=== PATIENT | female | born 1955 | race Two or more races ===

== ENCOUNTER 2019-08-28 17:04 | Inpatient (IN) | payer BC, MEDICARE ==
[~2019-08-28] VITALS: Ht 182.9 cm; Wt 95.7 kg
[2019-08-28 18:22] LABS: BASOPHILS # (AUTO) 0.09 x10^3/uL (0-0.1); BASOPHILS % (AUTO) 1 % (0-1); EOSINOPHILS # (AUTO) 0.59 x10^3/uL (0-0.4); EOSINOPHILS % (AUTO) 5 % (1-7); LYMPHOCYTES # (AUTO) 4.02 x10^3/uL (1-3.4); LYMPHOCYTES % (AUTO) 35 % (22-44); MD NO; MEAN CORPUSCULAR HGB CONC 31.7 g/dL (32.4-35.8); MEAN CORPUSCULAR VOLUME 91.6 fL (80-100); MEAN PLATELET VOLUME 9.1 fL (7.4-10.4); MONOCYTES # (AUTO) 0.49 x10^3/uL (0.2-0.8); MONOCYTES % (AUTO) 4 % (2-9); NEUTROPHILS # (AUTO) 6.39 x10^3/uL (1.8-6.8); NEUTROPHILS % (AUTO) 55 % (42-75); PLATELET COUNT 317 x10^3/uL (130-400)
[2019-08-28] MEDS ORDERED: SODIUM CHLORIDE FLUSH 10ML SYR IVF ONE (18:30)
[2019-08-28 18:32] LABS: ALANINE AMINOTRANSFERASE 32 U/L (12-78); ANION GAP 6 mmol/L (5-15); CALCIUM 8.6 mg/dL (8.5-10.1); CHLORIDE 114 mmol/L (98-107); CREATININE 0.82 mg/dL (0.55-1.02); T4 (THYROXINE) 13.3 mcg/dL (4.8-13.9)
[2019-08-28 18:36] LABS: ALKALINE PHOSPHATASE 58 U/L (45-117); BILIRUBIN,TOTAL 0.4 mg/dL (0.2-1.0); TOTAL PROTEIN 7.6 g/dL (6.4-8.2); TROPONIN I 0.094 ng/mL (0.000-0.045)
--- NOTE | 2019-08-28 18:40 | NUR ---
PT PLACED ON ALL MONITORING DEVICES IN ROOM. VS UPDATED IN COMPUTER. PT PROVIDED CANE ON REQUEST-STATES PREVIOUS WALKER AND CANE STOLEN. CALL LIGHT WITHIN REACH, WARM BLANKET PROVIDED.
--- NOTE | 2019-08-28 19:15 | NUR ---
task rn: PIV placed. O2 placed at 2 L NC to keep O2 sats above 90%. ice chips provided. mouth swabs provided per pt request.
[2019-08-28] MEDS ORDERED: FUROSEMIDE 40 MG/4 ML ONE (19:16)
[2019-08-28] MEDS ORDERED: NITROGLYCERIN OINT 2%, 1GM TP ONE ×2 (19:16→19:30)
[2019-08-28] MEDS ORDERED: ASPIRIN 81 MG TABLET CHEW ONE (19:16)
[2019-08-28] MEDS ORDERED: FUROSEMIDE 40 MG/4 ML IVPush ONE (19:30)
[2019-08-28] MEDS ORDERED: ASPIRIN 81 MG TABLET CHEW PO ONE (19:30)
[2019-08-28] MEDS ORDERED: LABETALOL 5 MG/ML SYR. (IV ONLY) IVPush ONE (19:30)
[2019-08-28] MEDS ORDERED: ANTIHYPERTENSIVE PO (19:39)
[2019-08-28] MEDS ORDERED: TRAM-47 PO (19:39)
[2019-08-28] MEDS ORDERED: ASPI325T17 PO (19:39)
[2019-08-28] MEDS ORDERED: LABETALOL 5MG/ML, 20ML ONE (19:51)
--- NOTE | 2019-08-28 19:55 | NUR ---
LABETOLOL GIVEN FOR BP 154/117. 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 REPORT TO YAQUELIN DEGROOT READY FOR TRANSPORT.
[2019-08-28] MEDS ORDERED: hydrALAzine 20 MG/ML, 1ML IVPush PRN (20:00)
[2019-08-28] MEDS ORDERED: POLYETHYLENE GLYCOL 17 GM PACKET PO PRN (20:00)
[2019-08-28] MEDS ORDERED: BISACODYL 10 MG SUPP PR PRN (20:00)
[2019-08-28] MEDS ORDERED: NITROGLYCERIN 0.4 MG BOTTLE (25 TABS) SL PRN (20:00)
[2019-08-28] MEDS ORDERED: morphine SULFATE 10 MG/ML, 1ML IVPush PRN (20:00)
[2019-08-28] MEDS ORDERED: PROMETHAZINE 25 MG/ML, 1ML IM PRN (20:00)
[2019-08-28] MEDS ORDERED: ONDANSETRON ODT 4 MG PO PRN (20:00)
[2019-08-28] MEDS ORDERED: LABETALOL 5 MG/ML SYR. (IV ONLY) IVPush PRN (20:00)
[2019-08-28] MEDS ORDERED: ACETAMINOPHEN 325 MG TABLET PO PRN (20:00)
[2019-08-28] MEDS ORDERED: ONDANSETRON 2MG/ML, 2ML IVPush PRN (20:00)
[2019-08-28] MEDS ORDERED: DOCUSATE 100 MG CAPSULE PO PRN (20:00)
[2019-08-28 20:45] VITALS: BP 128/90
[2019-08-28 21:01] LABS: HEMOGLOBIN A1C 5.7 % (4.2-6.3)
[2019-08-28] MEDS: HEPARIN 5,000 UNITS/ML, 1ML SQ SCH (21:15)
[2019-08-28 23:36] LABS: TROPONIN I 0.073 ng/mL (0.000-0.045)
[2019-08-28 23:49] VITALS: BP 150/101
[2019-08-29 01:31] VITALS: BP 150/87
[2019-08-29 02:27] LABS: TROPONIN I 0.067 ng/mL (0.000-0.045)
[2019-08-29 05:54] LABS: BASOPHILS # (AUTO) 0.03 x10^3/uL (0-0.1); BASOPHILS % (AUTO) 0 % (0-1); EOSINOPHILS % (AUTO) 5 % (1-7); LYMPHOCYTES # (AUTO) 3.16 x10^3/uL (1-3.4); LYMPHOCYTES % (AUTO) 30 % (22-44); MD NO; MEAN CORPUSCULAR HEMOGLOBIN 28.9 pg (27.0-34.8); MEAN CORPUSCULAR HGB CONC 31.6 g/dL (32.4-35.8); MEAN CORPUSCULAR VOLUME 91.6 fL (80-100); MEAN PLATELET VOLUME 9.1 fL (7.4-10.4); MONOCYTES # (AUTO) 0.64 x10^3/uL (0.2-0.8); MONOCYTES % (AUTO) 6 % (2-9); NEUTROPHILS # (AUTO) 6.25 x10^3/uL (1.8-6.8); NEUTROPHILS % (AUTO) 59 % (42-75); PLATELET COUNT 298 x10^3/uL (130-400); RED BLOOD COUNT 4.04 x10^6/uL (3.82-5.3); RED CELL DISTRIBUTION WIDTH 14.9 % (9.6-15.2)
[2019-08-29 06:06] LABS: ALANINE AMINOTRANSFERASE 30 U/L (12-78); ALBUMIN 2.9 g/dL (3.4-5.0); ANION GAP 7 mmol/L (5-15); CALCIUM 8.5 mg/dL (8.5-10.1); CHLORIDE 112 mmol/L (98-107)
[2019-08-29 06:11] LABS: ALKALINE PHOSPHATASE 56 U/L (45-117); BILIRUBIN,TOTAL 0.5 mg/dL (0.2-1.0); CHOL/HDL RATIO 3.9; CHOLESTEROL, TOTAL 94 mg/dL (140-239); CREATININE 0.62 mg/dL (0.55-1.02); HDL CHOL % 26 % (28-40); HDL CHOLESTEROL (DIRECT) 24 mg/dL (40-60); LDL CHOLESTEROL,CALCULATED 53 mg/dL (54-169); LDL/HDL RATIO 2.2 (0.5-3.0); TRIGLYCERIDES 85 mg/dL (50-200); TROPONIN I 0.062 ng/mL (0.000-0.045); VLDL CHOLESTEROL 17 mg/dL (0-25)
[2019-08-29] MEDS: ASPIRIN 325 MG TABLET EC PO SCH (06:49)
[2019-08-29] MEDS: HEPARIN 5,000 UNITS/ML, 1ML SQ SCH ×3 (06:49→22:50)
[2019-08-29] MEDS ORDERED: FUROSEMIDE 20 MG/2 ML IV SCH (07:30)
[2019-08-29 07:40] VITALS: BP 132/90
[2019-08-29] MEDS: OXYcodone IR 5MG TABLET PO PRN ×3 (12:29→22:50)
[2019-08-29] MEDS: POTASSIUM CHLORIDE 20 MEQ TAB.ER.PRT PO SCH ×2 (15:45→17:14)
[2019-08-29 15:47] VITALS: BP 161/94
[2019-08-29] MEDS: FUROSEMIDE 40 MG/4 ML IV SCH (17:14)
[2019-08-29 19:05] VITALS: BP 135/89
[2019-08-29] MEDS: LISINOPRIL 5 MG TABLET PO SCH (20:26)
[2019-08-30 01:06] VITALS: BP 130/81
[2019-08-30] MEDS: ASPIRIN 325 MG TABLET EC PO SCH (05:33)
[2019-08-30] MEDS: HEPARIN 5,000 UNITS/ML, 1ML SQ SCH ×2 (05:33→16:37)
[2019-08-30 05:42] LABS: ANION GAP 5 mmol/L (5-15); CALCIUM 8.9 mg/dL (8.5-10.1); CHLORIDE 109 mmol/L (98-107)
[2019-08-30 05:43] LABS: CREATININE 0.78 mg/dL (0.55-1.02)
[2019-08-30 05:58] LABS: BASOPHILS # (AUTO) 0.03 x10^3/uL (0-0.1); BASOPHILS % (AUTO) 0 % (0-1); EOSINOPHILS # (AUTO) 0.61 x10^3/uL (0-0.4); EOSINOPHILS % (AUTO) 5 % (1-7); LYMPHOCYTES # (AUTO) 4.65 x10^3/uL (1-3.4); LYMPHOCYTES % (AUTO) 37 % (22-44); MD NO; MEAN CORPUSCULAR HEMOGLOBIN 28.5 pg (27.0-34.8); MEAN CORPUSCULAR HGB CONC 31.7 g/dL (32.4-35.8); MEAN CORPUSCULAR VOLUME 89.9 fL (80-100); MEAN PLATELET VOLUME 8.8 fL (7.4-10.4); MONOCYTES # (AUTO) 0.78 x10^3/uL (0.2-0.8); MONOCYTES % (AUTO) 6 % (2-9); NEUTROPHILS # (AUTO) 6.62 x10^3/uL (1.8-6.8); NEUTROPHILS % (AUTO) 52 % (42-75); PLATELET COUNT 328 x10^3/uL (130-400); RED BLOOD COUNT 4.15 x10^6/uL (3.82-5.3); RED CELL DISTRIBUTION WIDTH 14.8 % (9.6-15.2)
[2019-08-30] MEDS ORDERED: REGADENOSON 0.4 MG/5 ML SYRINGE ONE (09:10)
[2019-08-30] MEDS: POTASSIUM CHLORIDE 20 MEQ TAB.ER.PRT PO SCH (09:18)
[2019-08-30] MEDS: LISINOPRIL 5 MG TABLET PO SCH ×2 (09:18→20:57)
[2019-08-30] MEDS: SPIRONOLACTONE 25 MG TABLET PO SCH ×2 (09:18→10:04)
[2019-08-30 09:37] VITALS: BP 129/81
[2019-08-30] MEDS: FUROSEMIDE 40 MG/4 ML IV SCH ×2 (10:04→16:36)
[2019-08-30 17:02] VITALS: BP 124/97
[2019-08-30 18:34] LABS: MICROSCOPIC NOT IND
[2019-08-30 18:35] LABS: CULTURE INDICATED? NO
[2019-08-30 19:40] VITALS: BP 138/93
[2019-08-30] MEDS: OXYcodone IR 5MG TABLET PO PRN (20:57)
[2019-08-31] MEDS: HEPARIN 5,000 UNITS/ML, 1ML SQ SCH ×3 (01:37→17:51)
[2019-08-31 01:44] VITALS: BP 136/89
[2019-08-31] MEDS: OXYcodone IR 5MG TABLET PO PRN ×3 (03:46→17:51)
[2019-08-31 05:20] LABS: BASOPHILS # (AUTO) 0.06 x10^3/uL (0-0.1); BASOPHILS % (AUTO) 1 % (0-1); EOSINOPHILS # (AUTO) 0.73 x10^3/uL (0-0.4); EOSINOPHILS % (AUTO) 6 % (1-7); LYMPHOCYTES # (AUTO) 4.68 x10^3/uL (1-3.4); LYMPHOCYTES % (AUTO) 41 % (22-44); MD NO; MEAN CORPUSCULAR HEMOGLOBIN 28.3 pg (27.0-34.8); MEAN CORPUSCULAR HGB CONC 31.4 g/dL (32.4-35.8); MEAN PLATELET VOLUME 8.5 fL (7.4-10.4); MONOCYTES # (AUTO) 0.83 x10^3/uL (0.2-0.8); MONOCYTES % (AUTO) 7 % (2-9); NEUTROPHILS # (AUTO) 5.14 x10^3/uL (1.8-6.8); NEUTROPHILS % (AUTO) 45 % (42-75); PLATELET COUNT 366 x10^3/uL (130-400); RED BLOOD COUNT 4.37 x10^6/uL (3.82-5.3); RED CELL DISTRIBUTION WIDTH 14.7 % (9.6-15.2)
[2019-08-31 05:26] LABS: ANION GAP 6 mmol/L (5-15); CALCIUM 9.3 mg/dL (8.5-10.1); CHLORIDE 108 mmol/L (98-107); CREATININE 0.79 mg/dL (0.55-1.02)
[2019-08-31] MEDS ORDERED: REGADENOSON 0.4 MG/5 ML SYRINGE ONE (08:22)
[2019-08-31 10:44] VITALS: BP 135/92
[2019-08-31] MEDS: FUROSEMIDE 40 MG/4 ML IV SCH ×2 (10:46→17:44)
[2019-08-31] MEDS: SPIRONOLACTONE 25 MG TABLET PO SCH (10:47)
[2019-08-31] MEDS: ASPIRIN 325 MG TABLET EC PO SCH (10:47)
[2019-08-31] MEDS: LISINOPRIL 5 MG TABLET PO SCH ×2 (10:47→20:05)
[2019-08-31] MEDS: POTASSIUM CHLORIDE 20 MEQ TAB.ER.PRT PO SCH (10:47)
[2019-08-31] MEDS ORDERED: POTASSIUM CHLORIDE 20 MEQ TAB.ER.PRT PO ONE (12:30)
[2019-08-31] MEDS ORDERED: HEPARIN 5,000 UNITS/ML, 1ML IV ONE (13:00)
[2019-08-31] MEDS ORDERED: HEPARIN 5,000 UNITS/ML, 1ML IV PRN (13:00)
[2019-08-31] MEDS ORDERED: HEPARIN 25,000 UNITS/500ML PMX 500 ML IV PRN (13:00)
[2019-08-31 13:20] VITALS: BP 142/97
[2019-08-31 17:42] VITALS: BP 128/94
[2019-08-31] MEDS: CARVEDILOL 3.125 MG TABLET PO SCH (17:46)
[2019-08-31 20:03] VITALS: BP 107/75
[2019-08-31] MEDS: ATORVASTATIN 40 MG TABLET PO SCH ×2 (20:05→20:07)
[2019-09-01] VITALS (7 sets, daily range): BP systolic 90–130; BP diastolic 67–84
[2019-09-01] MEDS: OXYcodone IR 5MG TABLET PO PRN ×4 (00:14→20:49)
[2019-09-01] MEDS: HEPARIN 5,000 UNITS/ML, 1ML SQ SCH ×3 (01:47→17:38)
[2019-09-01] MEDS: ASPIRIN 325 MG TABLET EC PO SCH (05:52)
[2019-09-01] MEDS: CARVEDILOL 3.125 MG TABLET PO SCH ×2 (05:52→17:38)
[2019-09-01 06:14] LABS: BASOPHILS # (AUTO) 0.04 x10^3/uL (0-0.1); BASOPHILS % (AUTO) 1 % (0-1); EOSINOPHILS # (AUTO) 0.72 x10^3/uL (0-0.4); EOSINOPHILS % (AUTO) 8 % (1-7); LYMPHOCYTES # (AUTO) 3.35 x10^3/uL (1-3.4); LYMPHOCYTES % (AUTO) 37 % (22-44); MD NO; MEAN CORPUSCULAR HEMOGLOBIN 28.8 pg (27.0-34.8); MEAN CORPUSCULAR HGB CONC 31.3 g/dL (32.4-35.8); MEAN PLATELET VOLUME 8.4 fL (7.4-10.4); MONOCYTES # (AUTO) 0.67 x10^3/uL (0.2-0.8); MONOCYTES % (AUTO) 8 % (2-9); NEUTROPHILS # (AUTO) 4.19 x10^3/uL (1.8-6.8); NEUTROPHILS % (AUTO) 47 % (42-75); PLATELET COUNT 390 x10^3/uL (130-400); RED BLOOD COUNT 4.49 x10^6/uL (3.82-5.3); RED CELL DISTRIBUTION WIDTH 14.7 % (9.6-15.2)
[2019-09-01 06:23] LABS: CHLORIDE 108 mmol/L (98-107)
[2019-09-01 06:29] LABS: ANION GAP 6 mmol/L (5-15); CALCIUM 9.4 mg/dL (8.5-10.1)
[2019-09-01] MEDS: FUROSEMIDE 40 MG/4 ML IV SCH (08:07)
[2019-09-01] MEDS: POTASSIUM CHLORIDE 20 MEQ TAB.ER.PRT PO SCH (08:09)
[2019-09-01] MEDS: SPIRONOLACTONE 25 MG TABLET PO SCH (08:09)
[2019-09-01] MEDS: LISINOPRIL 5 MG TABLET PO SCH ×2 (08:09→20:49)
[2019-09-01] MEDS: BUMETANIDE 0.25 MG/ML, 4ML IV SCH ×2 (09:00→20:49)
[2019-09-01] MEDS: ATORVASTATIN 40 MG TABLET PO SCH (20:50)
[2019-09-02] MEDS: HEPARIN 5,000 UNITS/ML, 1ML SQ SCH ×3 (00:56→18:26)
[2019-09-02] MEDS: OXYcodone IR 5MG TABLET PO PRN ×4 (00:56→21:33)
[2019-09-02 00:59] VITALS: BP 110/78
[2019-09-02 05:26] LABS: ANION GAP 7 mmol/L (5-15); CALCIUM 9.2 mg/dL (8.5-10.1); CHLORIDE 106 mmol/L (98-107); CREATININE 0.87 mg/dL (0.55-1.02)
[2019-09-02 06:24] VITALS: BP 98/58
[2019-09-02] MEDS: ASPIRIN 325 MG TABLET EC PO SCH (06:26)
[2019-09-02] MEDS: CARVEDILOL 3.125 MG TABLET PO SCH ×2 (06:26→18:26)
[2019-09-02 09:47] VITALS: BP 97/74
[2019-09-02] MEDS: BUMETANIDE 0.25 MG/ML, 4ML IV SCH (09:51)
[2019-09-02] MEDS: POTASSIUM CHLORIDE 20 MEQ TAB.ER.PRT PO SCH (09:51)
[2019-09-02] MEDS: SPIRONOLACTONE 25 MG TABLET PO SCH (09:52)
[2019-09-02] MEDS: LISINOPRIL 5 MG TABLET PO SCH (09:55)
[2019-09-02 13:48] VITALS: BP 109/72
[2019-09-02 17:23] VITALS: BP 106/73
[2019-09-02] MEDS: FUROSEMIDE 40 MG/4 ML IV SCH (17:24)
[2019-09-02 19:13] VITALS: BP 100/69
[2019-09-02] MEDS: ATORVASTATIN 40 MG TABLET PO SCH (21:00)
[2019-09-03 01:06] VITALS: BP 104/69
[2019-09-03] MEDS: HEPARIN 5,000 UNITS/ML, 1ML SQ SCH ×3 (01:12→18:28)
[2019-09-03] MEDS: OXYcodone IR 5MG TABLET PO PRN ×4 (02:17→21:01)
[2019-09-03 05:15] VITALS: BP 105/72
[2019-09-03] MEDS: CARVEDILOL 3.125 MG TABLET PO SCH ×2 (05:16→18:27)
[2019-09-03] MEDS: ASPIRIN 325 MG TABLET EC PO SCH (05:16)
[2019-09-03 05:39] LABS: ANION GAP 7 mmol/L (5-15); CALCIUM 9.4 mg/dL (8.5-10.1); CHLORIDE 103 mmol/L (98-107)
[2019-09-03 05:41] LABS: CREATININE 0.86 mg/dL (0.55-1.02)
[2019-09-03] MEDS: FUROSEMIDE 40 MG/4 ML IV SCH (08:20)
[2019-09-03 09:18] VITALS: BP 109/76
[2019-09-03] MEDS: LISINOPRIL 5 MG TABLET PO SCH (09:19)
[2019-09-03] MEDS: SPIRONOLACTONE 25 MG TABLET PO SCH (09:19)
[2019-09-03] MEDS: POTASSIUM CHLORIDE 20 MEQ TAB.ER.PRT PO SCH (09:20)
[2019-09-03 15:24] VITALS: BP 96/66
[2019-09-03 18:25] VITALS: BP 103/71
[2019-09-03 19:12] VITALS: BP 102/72
[2019-09-03] MEDS: ATORVASTATIN 40 MG TABLET PO SCH (21:00)
[2019-09-04 00:31] VITALS: BP 117/86
[2019-09-04] MEDS: OXYcodone IR 5MG TABLET PO PRN ×2 (01:26→02:15)
[2019-09-04] MEDS: HEPARIN 5,000 UNITS/ML, 1ML SQ SCH ×2 (01:26→09:37)
[2019-09-04] MEDS ORDERED: DIPHENHYDRAMINE 25 MG CAPSULE PO ONE (04:30)
[2019-09-04] MEDS: CARVEDILOL 3.125 MG TABLET PO SCH (04:37)
[2019-09-04] MEDS: ASPIRIN 325 MG TABLET EC PO SCH (04:38)
[2019-09-04 08:52] VITALS: BP 112/78
[2019-09-04] MEDS ORDERED: FURO80TA3 PO (08:57)
[2019-09-04] MEDS ORDERED: CARV3.1212 PO (08:57)
[2019-09-04] MEDS ORDERED: SPIR25TA PO (08:57)
[2019-09-04] MEDS ORDERED: LISI5TAB7 PO (08:57)
[2019-09-04] MEDS ORDERED: POTA20TA6 PO (08:57)
[2019-09-04] MEDS ORDERED: ATOR40TA78 PO (08:57)
[2019-09-04] MEDS ORDERED: FUROSEMIDE 80 MG TABLET PO SCH (09:00)
[2019-09-04] MEDS: LISINOPRIL 5 MG TABLET PO SCH (09:34)
[2019-09-04] MEDS: SPIRONOLACTONE 25 MG TABLET PO SCH (09:34)
[2019-09-04] MEDS: POTASSIUM CHLORIDE 20 MEQ TAB.ER.PRT PO SCH (09:35)
== END 2019-09-04 10:10 | disposition home or self-care (01) | DRG 280 ==
LOC: ED 19:22 → EDIP 19:59 → 5SO 20:30
PROVIDERS: ADMIT Internal Medicine; ATTEND Family Medicine
DX: I21.A1 Myocardial infarction type 2 (principal); I50.43 Acute on chronic combined systolic (congestive) and diastolic (congestive) heart failure; I42.9 Cardiomyopathy, unspecified; I11.0 Hypertensive heart disease with heart failure; E87.6 Hypokalemia; F17.210 Nicotine dependence, cigarettes, uncomplicated; G89.29 Other chronic pain; I27.20 Pulmonary hypertension, unspecified; I34.0 Nonrheumatic mitral (valve) insufficiency; M48.00 Spinal stenosis, site unspecified; Z96.649 Presence of unspecified artificial hip joint; Z96.653 Presence of artificial knee joint, bilateral; I25.10 Atherosclerotic heart disease of native coronary artery without angina pectoris; Z91.14 Patient's other noncompliance with medication regimen; Z59.0 Homelessness
CPT/HCPCS: 0399T; 36415; 71045; 78452; 80048; 80053; 80061; 81003; 83036; 83735; 83880; 84100; 84145; 84436; 84439; 84443; 84484; 85025; 85520; 93005; 93017; 93306; 96374; 96375; G0378; J1644; J1940; J2785; A9502; J0360; Q0163

== ENCOUNTER 2019-10-20 15:27 | Emergency (ER) | payer BC ==
[~2019-10-20] VITALS: Ht 182.9 cm; Wt 94.7 kg
[~2019-10-20 15:27] MED LIST: ANTIHYPERTENSIVE PO; ASPI325T17 PO; ATOR40TA78 PO; CARV3.1212 PO; FURO80TA3 PO; LISI5TAB7 PO; POTA20TA6 PO; SPIR25TA PO; TRAM-47 PO
--- NOTE | 2019-10-20 15:47 | NUR ---
[email or web address]
--- NOTE | 2019-10-20 19:34 | NUR ---
ALEENA RN: ANJANA COLLECTED AND WALKED TO LAB FROM JOHNATHAN
[2019-10-20 19:38] LABS: ALANINE AMINOTRANSFERASE 24 U/L (12-78); ANION GAP 8 mmol/L (5-15); CALCIUM 9.7 mg/dL (8.5-10.1); CHLORIDE 110 mmol/L (98-107)
[2019-10-20 19:43] LABS: ALKALINE PHOSPHATASE 67 U/L (45-117); CREATININE 0.98 mg/dL (0.55-1.02); TOTAL PROTEIN 8.5 g/dL (6.4-8.2)
[2019-10-20 19:47] LABS: BASOPHILS # (AUTO) 0.03 x10^3/uL (0-0.1); BASOPHILS % (AUTO) 0 % (0-1); EOSINOPHILS # (AUTO) 0.15 x10^3/uL (0-0.4); EOSINOPHILS % (AUTO) 2 % (1-7); LYMPHOCYTES # (AUTO) 4.27 x10^3/uL (1-3.4); LYMPHOCYTES % (AUTO) 42 % (22-44); MD NO; MEAN CORPUSCULAR HEMOGLOBIN 27.5 pg (27.0-34.8); MEAN CORPUSCULAR HGB CONC 31.2 g/dL (32.4-35.8); MEAN PLATELET VOLUME 9.2 fL (7.4-10.4); MONOCYTES # (AUTO) 0.55 x10^3/uL (0.2-0.8); MONOCYTES % (AUTO) 6 % (2-9); NEUTROPHILS # (AUTO) 5.09 x10^3/uL (1.8-6.8); NEUTROPHILS % (AUTO) 50 % (42-75); PLATELET COUNT 275 x10^3/uL (130-400); RED BLOOD COUNT 4.59 x10^6/uL (3.82-5.3); RED CELL DISTRIBUTION WIDTH 16.7 % (9.6-15.2)
[2019-10-20 19:51] LABS: MICROSCOPIC AUTO
[2019-10-20 19:52] LABS: CULTURE INDICATED? YES
[2019-10-20] MEDS ORDERED: DICYCLOMINE 10 MG/ML, 2ML ONE (22:21)
[2019-10-20] MEDS ORDERED: DIPHENHYDRAMINE 50 MG/ML, 1ML ONE (22:21)
[2019-10-20] MEDS ORDERED: ONDANSETRON ODT 4 MG ONE (22:22)
[2019-10-20] MEDS ORDERED: DICYCLOMINE 10 MG/ML, 2ML IM ONE (22:30)
[2019-10-20] MEDS ORDERED: ONDANSETRON ODT 4 MG PO ONE (22:30)
[2019-10-20] MEDS ORDERED: TRAM50TA2 PO (22:34)
[2019-10-20] MEDS ORDERED: HYDR-826 PO (22:34)
--- NOTE | 2019-10-20 22:46 | NUR ---
Pt medicated per MAR.
[2019-10-20 22:52] VITALS: BP 157/98
== END 2019-10-20 23:04 | disposition home or self-care (01) ==
LOC: ED 22:45
DX: R11.2 Nausea with vomiting, unspecified (principal); R19.7 Diarrhea, unspecified; E86.0 Dehydration; R10.84 Generalized abdominal pain; I11.0 Hypertensive heart disease with heart failure; I25.2 Old myocardial infarction
CPT/HCPCS: 36415; 80053; 81001; 83690; 83880; 85025; 87086; 96372; 99283; J0500; Q0162

== ENCOUNTER 2019-12-05 01:33 | Inpatient (IN) | payer MEDICARE ==
[~2019-12-05] VITALS: Ht 180.3 cm; Wt 97.8 kg
[~2019-12-05 01:33] MED LIST changes: +HYDR-826 PO; +TRAM50TA2 PO
[2019-12-05] MEDS ORDERED: LOSA25TA25 PO (02:11)
[2019-12-05] MEDS ORDERED: FURO20TA3 PO (02:11)
[2019-12-05] MEDS ORDERED: SODIUM CHLORIDE FLUSH 10ML SYR IVF ONE (02:30)
[2019-12-05] MEDS ORDERED: ASPIRIN 81 MG TABLET CHEW PO ONE (02:30)
[2019-12-05] MEDS ORDERED: ONDANSETRON 2MG/ML, 2ML ONE (02:56)
[2019-12-05] MEDS ORDERED: ONDANSETRON 2MG/ML, 2ML IVPush ONE (03:00)
--- NOTE | 2019-12-05 03:05 | NUR ---
C/O NAUSEA AND FEELING ANXIOUS, MEDICATED PER MAR. EDUCATED AND ENCOURAGED PT ON LEAVING OXYGEN NC ON. MOTION PICTURE DIRECTOR AT BEDSIDE FOR BLOOD DRAW.
[2019-12-05] MEDS ORDERED: LORazepam 2 MG/ML, 1ML ONE (03:13)
[2019-12-05 03:18] LABS: BASOPHILS # (AUTO) 0.04 x10^3/uL (0-0.1); BASOPHILS % (AUTO) 1 % (0-1); EOSINOPHILS # (AUTO) 0.11 x10^3/uL (0-0.4); EOSINOPHILS % (AUTO) 1 % (1-7); LYMPHOCYTES % (AUTO) 24 % (22-44); MD NO; MEAN CORPUSCULAR HGB CONC 31.3 g/dL (32.4-35.8); MEAN CORPUSCULAR VOLUME 86.4 fL (80-100); MEAN PLATELET VOLUME 9.1 fL (7.4-10.4); MONOCYTES # (AUTO) 0.44 x10^3/uL (0.2-0.8); MONOCYTES % (AUTO) 5 % (2-9); NEUTROPHILS # (AUTO) 6.22 x10^3/uL (1.8-6.8); NEUTROPHILS % (AUTO) 69 % (42-75); PLATELET COUNT 284 x10^3/uL (130-400); RED BLOOD COUNT 4.54 x10^6/uL (3.82-5.3); RED CELL DISTRIBUTION WIDTH 19.6 % (9.6-15.2)
[2019-12-05 03:30] LABS: ALANINE AMINOTRANSFERASE 31 U/L (12-78); ALBUMIN 3.7 g/dL (3.4-5.0); ANION GAP 9 mmol/L (5-15); CALCIUM 9.2 mg/dL (8.5-10.1); CHLORIDE 107 mmol/L (98-107); CREATININE 0.82 mg/dL (0.55-1.02)
[2019-12-05] MEDS ORDERED: LORazepam 2 MG/ML, 1ML IVPush ONE (03:30)
[2019-12-05 03:35] LABS: ALKALINE PHOSPHATASE 62 U/L (45-117); BILIRUBIN,TOTAL 0.9 mg/dL (0.2-1.0); TOTAL PROTEIN 8.1 g/dL (6.4-8.2); TROPONIN I 0.112 ng/mL (0.000-0.045)
[2019-12-05] MEDS ORDERED: ALBUTEROL/IPRATROPIUM 2.5MG/0.5MG, 3 ML ONE (03:58)
[2019-12-05] MEDS ORDERED: ALBUTEROL/IPRATROPIUM 2.5MG/0.5MG, 3 ML NPPB ONE (04:00)
[2019-12-05] MEDS ORDERED: SODIUM CHLORIDE 0.9% 1,000ML IVBOLUS ONE (04:00)
[2019-12-05] MEDS ORDERED: AZITHROMYCIN 500 MG in SODIUM CHLORIDE 0.9% 250 ML IVPB ONE (04:00)
[2019-12-05] MEDS ORDERED: CEFTRIAXONE PMX 1GM/50ML 50 ML IVPB ONE (04:00)
[2019-12-05] MEDS ORDERED: CEFTRIAXONE PMX 1GM/50ML 50 ML ONE (04:19)
--- NOTE | 2019-12-05 04:43 | NUR ---
SITTING UP ON GURNEY IN TRIPOD POSITION FOR COMFORT, NO ACUTE DISTRESS NOTED. VSS.
--- NOTE | 2019-12-05 05:07 | NUR ---
REPORT GIVEN TO MELINA COX.
[2019-12-05] MEDS ORDERED: ACETAMINOPHEN 325 MG TABLET PO PRN (05:30)
[2019-12-05] MEDS ORDERED: ONDANSETRON 2MG/ML, 2ML IVPush PRN (05:30)
[2019-12-05] MEDS ORDERED: CEFTRIAXONE PMX 1GM/50ML 50 ML IV SCH (06:00)
[2019-12-05 06:02] VITALS: BP 134/97
[2019-12-05 06:34] LABS: TROPONIN I 0.123 ng/mL (0.000-0.045)
[2019-12-05 07:58] VITALS: BP 131/80
[2019-12-05] MEDS ORDERED: FUROSEMIDE 20 MG/2 ML IV SCH (09:00)
[2019-12-05] MEDS: DOXYCYCLINE 100MG CAP PO SCH ×2 (09:11→22:07)
[2019-12-05] MEDS: FUROSEMIDE 40 MG/4 ML IV SCH ×2 (09:11→22:07)
[2019-12-05] MEDS: OXYcodone IR 5MG TABLET PO PRN ×3 (09:46→22:08)
[2019-12-05] MEDS ORDERED: LIDOCAINE 1%, 10ML ONE (10:39)
[2019-12-05 12:02] LABS: TROPONIN I 0.115 ng/mL (0.000-0.045)
[2019-12-05 12:15] VITALS: BP 138/85
[2019-12-05 12:17] LABS: MICROSCOPIC NOT IND
[2019-12-05 12:21] LABS: CULTURE INDICATED? NO
[2019-12-05 18:29] LABS: TROPONIN I 0.128 ng/mL (0.000-0.045)
[2019-12-05 19:37] VITALS: BP 136/81
[2019-12-06 01:15] VITALS: BP 108/72
[2019-12-06] MEDS: OXYcodone IR 5MG TABLET PO PRN ×2 (04:33→12:04)
[2019-12-06 05:14] LABS: ANION GAP 5 mmol/L (5-15); CALCIUM 8.6 mg/dL (8.5-10.1); CHLORIDE 105 mmol/L (98-107)
[2019-12-06 05:17] LABS: BASOPHILS # (AUTO) 0.03 x10^3/uL (0-0.1); BASOPHILS % (AUTO) 1 % (0-1); CREATININE 0.94 mg/dL (0.55-1.02); EOSINOPHILS # (AUTO) 0.24 x10^3/uL (0-0.4); EOSINOPHILS % (AUTO) 3 % (1-7); LYMPHOCYTES # (AUTO) 3.17 x10^3/uL (1-3.4); LYMPHOCYTES % (AUTO) 41 % (22-44); MD NO; MEAN CORPUSCULAR HEMOGLOBIN 27.2 pg (27.0-34.8); MEAN CORPUSCULAR HGB CONC 31.3 g/dL (32.4-35.8); MEAN CORPUSCULAR VOLUME 86.9 fL (80-100); MEAN PLATELET VOLUME 9.1 fL (7.4-10.4); MONOCYTES # (AUTO) 0.52 x10^3/uL (0.2-0.8); MONOCYTES % (AUTO) 7 % (2-9); NEUTROPHILS % (AUTO) 48 % (42-75); PLATELET COUNT 234 x10^3/uL (130-400); RED BLOOD COUNT 4.11 x10^6/uL (3.82-5.3); RED CELL DISTRIBUTION WIDTH 19.3 % (9.6-15.2)
[2019-12-06 06:50] VITALS: BP 118/70
[2019-12-06] MEDS: FUROSEMIDE 40 MG/4 ML IV SCH (07:43)
[2019-12-06] MEDS: DOXYCYCLINE 100MG CAP PO SCH (07:43)
[2019-12-06] MEDS ORDERED: CLOTRIMAZOLE CRM 1%, 15GM TP SCH (09:30)
[2019-12-06 12:30] VITALS: BP 115/81
== END 2019-12-06 15:25 | disposition left against medical advice (07) | DRG 871 ==
LOC: ED 04:12 → EDIP 04:29 → 5SO 05:47
PROVIDERS: ADMIT Family Medicine; ATTEND Hospitalist
PROC: 0W993ZZ Drainage of Right Pleural Cavity, Percutaneous Approach (ICD-10-PCS; principal; 2019-12-05)
DX: A41.9 Sepsis, unspecified organism (principal); I50.43 Acute on chronic combined systolic (congestive) and diastolic (congestive) heart failure; J96.01 Acute respiratory failure with hypoxia; R65.21 Severe sepsis with septic shock; I21.4 Non-ST elevation (NSTEMI) myocardial infarction; J15.6 Pneumonia due to other Gram-negative bacteria; R94.31 Abnormal electrocardiogram [ECG] [EKG]; I25.10 Atherosclerotic heart disease of native coronary artery without angina pectoris; Z53.29 Procedure and treatment not carried out because of patient's decision for other reasons; M48.00 Spinal stenosis, site unspecified; I11.0 Hypertensive heart disease with heart failure; I25.2 Old myocardial infarction; Z59.0 Homelessness; Z87.891 Personal history of nicotine dependence; Z91.14 Patient's other noncompliance with medication regimen
CPT/HCPCS: 32555; 36415; 71275; 80048; 80053; 81003; 82042; 82945; 83605; 83615; 83880; 83986; 84145; 84484; 85025; 87040; 87070; 87205; 89051; 93005; 94640; 96365; 96375; 99291; G0378; J0456; J0696; J1940; J2405; J2060; J7030; J7050

== ENCOUNTER 2019-12-27 08:46 | Emergency (ER) | payer MEDICARE ==
[~2019-12-27] VITALS: Ht 180.3 cm; Wt 91.5 kg
[~2019-12-27 08:46] MED LIST changes: +FURO20TA3 PO; +LOSA25TA25 PO
--- NOTE | 2019-12-27 09:09 | NUR ---
first contact with pt. pt C/O: Nausea without vomiting for two days, diarrhea for two days, and ring worm and rash on bilateral feet. pt's aox4. resps even and unlabored. all monitors in place. call light within reach. pa at bedside to evaluate at this time.
--- NOTE | 2019-12-27 09:27 | NUR ---
EKG DONE AT BEDSIDE AT THIS TIME. URINE CUP GIVEN PT AWARE OF UA.
[2019-12-27] MEDS ORDERED: SODIUM CHLORIDE 0.9% 1,000ML IVBOLUS ONE (09:30)
[2019-12-27] MEDS ORDERED: ONDANSETRON 2MG/ML, 2ML IVPush ONE (09:30)
[2019-12-27] MEDS ORDERED: ONDANSETRON 2MG/ML, 2ML ONE (09:35)
--- NOTE | 2019-12-27 09:35 | NUR ---
pt amb to br and back to room with steady gait.
[2019-12-27 09:38] LABS: ALBUMIN 3.6 g/dL (3.4-5.0); ANION GAP 9 mmol/L (5-15); CALCIUM 9.3 mg/dL (8.5-10.1); CHLORIDE 112 mmol/L (98-107); CREATININE 0.85 mg/dL (0.55-1.02)
[2019-12-27 09:43] LABS: BASOPHILS # (AUTO) 0.06 x10^3/uL (0-0.1); BASOPHILS % (AUTO) 1 % (0-1); EOSINOPHILS # (AUTO) 0.21 x10^3/uL (0-0.4); EOSINOPHILS % (AUTO) 2 % (1-7); LYMPHOCYTES # (AUTO) 3.94 x10^3/uL (1-3.4); LYMPHOCYTES % (AUTO) 40 % (22-44); MD NO; MEAN CORPUSCULAR HEMOGLOBIN 27.1 pg (27.0-34.8); MEAN CORPUSCULAR HGB CONC 31.6 g/dL (32.4-35.8); MEAN CORPUSCULAR VOLUME 85.8 fL (80-100); MONOCYTES # (AUTO) 0.53 x10^3/uL (0.2-0.8); MONOCYTES % (AUTO) 5 % (2-9); NEUTROPHILS # (AUTO) 5.12 x10^3/uL (1.8-6.8); NEUTROPHILS % (AUTO) 52 % (42-75); PLATELET COUNT 245 x10^3/uL (130-400); RED BLOOD COUNT 4.46 x10^6/uL (3.82-5.3); RED CELL DISTRIBUTION WIDTH 19.1 % (9.6-15.2)
--- NOTE | 2019-12-27 09:47 | NUR ---
ua collected and sent.
--- NOTE | 2019-12-27 09:50 | NUR ---
ICE CHIPS GIVEN AT THIS TIME.
[2019-12-27 09:59] LABS: MICROSCOPIC INDICATED
[2019-12-27 10:03] LABS: CULTURE INDICATED? YES
--- NOTE | 2019-12-27 10:37 | NUR ---
hospital socks given per request. rail 1 down per request at this time. call light wihin reach. pt's aox4. resps even and unlabored.
[2019-12-27 11:10] VITALS: BP 135/110
--- NOTE | 2019-12-27 11:11 | NUR ---
Patient given discharge instructions and they have confirmed that they understand the instructions. Patient ambulatory with steady gait.
== END 2019-12-27 11:13 | disposition home or self-care (01) ==
LOC: ED 09:03
DX: B35.4 Tinea corporis (principal); R19.7 Diarrhea, unspecified; I25.2 Old myocardial infarction; I11.0 Hypertensive heart disease with heart failure; I50.9 Heart failure, unspecified; R00.0 Tachycardia, unspecified; Z87.891 Personal history of nicotine dependence
CPT/HCPCS: 36415; 80048; 81001; 82040; 85025; 87086; 93005; 96374; 99284; J2405

== ENCOUNTER 2019-12-30 15:48 | Emergency (ER) | payer MEDICARE ==
[~2019-12-30] VITALS: Ht 180.3 cm; Wt 88.0 kg
--- NOTE | 2019-12-30 16:20 | NUR ---
PT HAS CO GIPSON FOR 2 MONTHS AND NOT SLEEPING. PT STATES SHE HAD N/V TODAY. PT DENIES SOB, CP OR COUGH. PT NOT IN DISTRESS
[2019-12-30] MEDS ORDERED: DIPHENHYDRAMINE 25 MG CAPSULE PO ONE (16:30)
[2019-12-30] MEDS ORDERED: ACETAMINOPHEN 325 MG TABLET PO ONE (16:30)
[2019-12-30] MEDS ORDERED: ONDANSETRON ODT 4 MG PO ONE (16:30)
[2019-12-30] MEDS ORDERED: DIPHENHYDRAMINE 25 MG CAPSULE ONE (16:31)
[2019-12-30] MEDS ORDERED: ONDANSETRON ODT 4 MG ONE (16:32)
[2019-12-30] MEDS ORDERED: ACETAMINOPHEN 325 MG TABLET ONE (16:32)
[2019-12-30 16:57] LABS: ALANINE AMINOTRANSFERASE 19 U/L (12-78); ALBUMIN 3.6 g/dL (3.4-5.0); ANION GAP 6 mmol/L (5-15); CALCIUM 9.4 mg/dL (8.5-10.1); CHLORIDE 111 mmol/L (98-107)
[2019-12-30 17:01] LABS: ALKALINE PHOSPHATASE 56 U/L (45-117); BILIRUBIN,TOTAL 1.2 mg/dL (0.2-1.0); CREATININE 1.09 mg/dL (0.55-1.02); TOTAL PROTEIN 8.1 g/dL (6.4-8.2)
[2019-12-30 17:13] LABS: MEAN CORPUSCULAR HEMOGLOBIN 27.5 pg (27.0-34.8); MEAN CORPUSCULAR HGB CONC 31.9 g/dL (32.4-35.8); MEAN CORPUSCULAR VOLUME 86.2 fL (80-100); MEAN PLATELET VOLUME 9.5 fL (7.4-10.4); PLATELET COUNT 199 x10^3/uL (130-400); RED BLOOD COUNT 4.24 x10^6/uL (3.82-5.3); RED CELL DISTRIBUTION WIDTH 19.3 % (9.6-15.2)
[2019-12-30 17:43] LABS: MD YES
[2019-12-30 17:49] LABS: EOS#(MANUAL) 0.34 x10^3/uL (0.0-0.4); EOS% (MANUAL) 4 % (1-7); LYMPH#(MANUAL) 3.23 x10^3/uL (1-3.4); LYMPHS% (MANUAL) 38 % (22-44); MONOS#(MANUAL) 0.77 x10^3/uL (0.3-2.7); MONOS% (MANUAL) 9 % (2-9); SEG#(MANUAL) 4.17 x10^3/uL (1.8-6.8); SEGS% (MANUAL) 49 % (42-75)
[2019-12-30 17:50] LABS: OVALOCYTES 1+; POLYCHROMASIA 1+
[2019-12-30 17:54] LABS: <PLATELET ESTIMATE> ADEQUATE; <PLT MORPHOLOGY> NORMAL PLT MORPH; HYPOCHROMIA 1+; MICROCYTOSIS 1+
--- NOTE | 2019-12-30 18:00 | NUR ---
PT AMBULATED TO BATHROOM W STEADY GAIT
[2019-12-30 19:14] VITALS: BP 140/86
== END 2019-12-30 19:23 | disposition home or self-care (01) ==
LOC: ED 16:06
DX: G43.009 Migraine without aura, not intractable, without status migrainosus (principal); R79.9 Abnormal finding of blood chemistry, unspecified; I11.0 Hypertensive heart disease with heart failure; I50.9 Heart failure, unspecified; Z87.891 Personal history of nicotine dependence
CPT/HCPCS: 36415; 71045; 80053; 83880; 85025; 93005; 99285; Q0162; Q0163

== ENCOUNTER 2020-01-01 20:19 | Inpatient (IN) | payer MEDICARE ==
[~2020-01-01] VITALS: Ht 180.3 cm; Wt 89.1 kg
--- NOTE | 2020-01-01 20:57 | NUR ---
Pt presents to room breathing in tripod position. Pt reports SOB for the past 4 months and states she has not been able to make or keep f/u appts with a PMD. Pt states she has been placed on HCTZ and Lisinopril but her SOB continues to worsen.
[2020-01-01] MEDS ORDERED: SODIUM CHLORIDE FLUSH 10ML SYR IVF ONE (21:00)
--- NOTE | 2020-01-01 21:00 | NUR ---
Pt placed on 2lpm O2 for SpO2 of 90% and obvious work of breathing.
[2020-01-01 21:18] LABS: BASOPHILS # (AUTO) 0.02 x10^3/uL (0-0.1); BASOPHILS % (AUTO) 0 % (0-1); EOSINOPHILS # (AUTO) 0.22 x10^3/uL (0-0.4); EOSINOPHILS % (AUTO) 3 % (1-7); LYMPHOCYTES # (AUTO) 2.85 x10^3/uL (1-3.4); LYMPHOCYTES % (AUTO) 36 % (22-44); MD NO; MEAN CORPUSCULAR HEMOGLOBIN 27.3 pg (27.0-34.8); MEAN CORPUSCULAR HGB CONC 31.6 g/dL (32.4-35.8); MEAN CORPUSCULAR VOLUME 86.6 fL (80-100); MEAN PLATELET VOLUME 9.5 fL (7.4-10.4); MONOCYTES # (AUTO) 0.39 x10^3/uL (0.2-0.8); MONOCYTES % (AUTO) 5 % (2-9); NEUTROPHILS # (AUTO) 4.49 x10^3/uL (1.8-6.8); NEUTROPHILS % (AUTO) 56 % (42-75); PLATELET COUNT 221 x10^3/uL (130-400); RED BLOOD COUNT 4.31 x10^6/uL (3.82-5.3); RED CELL DISTRIBUTION WIDTH 20.6 % (9.6-15.2)
[2020-01-01] MEDS ORDERED: ONDANSETRON 2MG/ML, 2ML ONE (21:21)
[2020-01-01 21:27] LABS: ALANINE AMINOTRANSFERASE 20 U/L (12-78); ALBUMIN 3.7 g/dL (3.4-5.0); ANION GAP 10 mmol/L (5-15); CALCIUM 9.2 mg/dL (8.5-10.1); CHLORIDE 109 mmol/L (98-107); CREATININE 0.95 mg/dL (0.55-1.02)
[2020-01-01] MEDS ORDERED: ONDANSETRON 2MG/ML, 2ML IVPush ONE (21:30)
[2020-01-01 21:31] LABS: ALKALINE PHOSPHATASE 51 U/L (45-117); BILIRUBIN,TOTAL 1.3 mg/dL (0.2-1.0); TOTAL PROTEIN 8.3 g/dL (6.4-8.2)
--- NOTE | 2020-01-01 21:32 | NUR ---
Pt up to commode and back.
[2020-01-01 21:33] LABS: TROPONIN I 0.125 ng/mL (0.000-0.045)
[2020-01-01] MEDS ORDERED: MORPHINE SULFATE 4 MG/ML, 1ML IVPush PRN (22:30)
[2020-01-01] MEDS ORDERED: FUROSEMIDE 40 MG/4 ML IVPush ONE (22:30)
[2020-01-01] MEDS ORDERED: FUROSEMIDE 40 MG/4 ML ONE (22:31)
[2020-01-01] MEDS ORDERED: MORPHINE SULFATE 4 MG/ML, 1ML ONE (22:31)
[2020-01-01] MEDS ORDERED: ONDANSETRON 2MG/ML, 2ML IVPush PRN (23:00)
--- NOTE | 2020-01-01 23:17 | NUR ---
Report called to Chantal COX.
[2020-01-01 23:51] VITALS: BP_SYST 140; BP_SYST 150; BP_DIAS 100; BP_DIAS 99
[2020-01-02 05:33] LABS: BASOPHILS # (AUTO) 0.02 x10^3/uL (0-0.1); BASOPHILS % (AUTO) 0 % (0-1); EOSINOPHILS % (AUTO) 2 % (1-7); LYMPHOCYTES # (AUTO) 3.97 x10^3/uL (1-3.4); LYMPHOCYTES % (AUTO) 45 % (22-44); MD NO; MEAN CORPUSCULAR HEMOGLOBIN 27.2 pg (27.0-34.8); MEAN CORPUSCULAR VOLUME 87.6 fL (80-100); MEAN PLATELET VOLUME 9.4 fL (7.4-10.4); MONOCYTES % (AUTO) 7 % (2-9); NEUTROPHILS # (AUTO) 4.01 x10^3/uL (1.8-6.8); NEUTROPHILS % (AUTO) 46 % (42-75); PLATELET COUNT 196 x10^3/uL (130-400); RED CELL DISTRIBUTION WIDTH 20.5 % (9.6-15.2)
[2020-01-02 05:36] LABS: ANION GAP 7 mmol/L (5-15); CALCIUM 8.6 mg/dL (8.5-10.1); CHLORIDE 107 mmol/L (98-107); CREATININE 0.87 mg/dL (0.55-1.02)
[2020-01-02 05:41] LABS: TROPONIN I 0.122 ng/mL (0.000-0.045)
[2020-01-02] MEDS: CARVEDILOL 3.125 MG TABLET PO SCH ×2 (06:35→18:02)
[2020-01-02 08:02] VITALS: BP 135/98
[2020-01-02] MEDS ORDERED: FUROSEMIDE 40 MG TABLET PO SCH (09:00)
[2020-01-02] MEDS ORDERED: CLOT15CR TD (10:11)
[2020-01-02] MEDS: SPIRONOLACTONE 25 MG TABLET PO SCH (10:16)
[2020-01-02] MEDS: LISINOPRIL 5 MG TABLET PO SCH (10:17)
[2020-01-02] MEDS: ASPIRIN 325 MG TABLET PO SCH (10:17)
[2020-01-02] MEDS: LOSARTAN 25MG TABLET PO SCH (10:17)
[2020-01-02] MEDS: POTASSIUM CHLORIDE 20 MEQ TAB.ER.PRT PO SCH (10:17)
[2020-01-02] MEDS: FUROSEMIDE 40 MG TABLET PO SCH ×2 (10:20→18:02)
[2020-01-02 12:10] LABS: AMPHETAMINE SCREEN, URINE Negative (Negative); BARBITURATE SCREEN, URINE Negative (Negative); BENZODIAZEPINE SCREEN, URINE Negative (Negative); CANNABINOID SCREEN, URINE Negative (Negative); COCAINE SCREEN, URINE Negative (Negative); METHADONE SCREEN, URINE Negative (Negative); OPIATE SCREEN, URINE Positive (Negative)
[2020-01-02 13:18] VITALS: BP 126/87
[2020-01-02] MEDS: CLOTRIMAZOLE CRM 1%, 15GM TP SCH ×2 (18:01→21:54)
[2020-01-02] MEDS ORDERED: ATORVASTATIN 40 MG TABLET PO SCH (21:00)
[2020-01-02 21:52] VITALS: BP 113/83
[2020-01-03 00:42] VITALS: BP 117/71
[2020-01-03] MEDS: CARVEDILOL 3.125 MG TABLET PO SCH (06:04)
[2020-01-03 08:02] LABS: ANION GAP 6 mmol/L (5-15); CALCIUM 8.8 mg/dL (8.5-10.1); CHLORIDE 106 mmol/L (98-107); CREATININE 0.81 mg/dL (0.55-1.02)
[2020-01-03] MEDS: LISINOPRIL 5 MG TABLET PO SCH (08:06)
[2020-01-03] MEDS: SPIRONOLACTONE 25 MG TABLET PO SCH (08:06)
[2020-01-03] MEDS: POTASSIUM CHLORIDE 20 MEQ TAB.ER.PRT PO SCH (08:06)
[2020-01-03] MEDS: ASPIRIN 325 MG TABLET PO SCH (08:06)
[2020-01-03] MEDS: LOSARTAN 25MG TABLET PO SCH (08:06)
[2020-01-03] MEDS: FUROSEMIDE 40 MG TABLET PO SCH (08:07)
[2020-01-03 08:10] VITALS: BP 118/85
[2020-01-03] MEDS ORDERED: FURO40TA6 PO (08:21)
[2020-01-03] MEDS ORDERED: CARV3.1212 PO (08:21)
[2020-01-03] MEDS ORDERED: SPIR25TA PO (08:21)
[2020-01-03] MEDS ORDERED: ASPI-515 PO (08:21)
[2020-01-03] MEDS ORDERED: ATOR40TA78 PO (08:21)
[2020-01-03] MEDS: CLOTRIMAZOLE CRM 1%, 15GM TP SCH (08:53)
[2020-01-03 09:15] VITALS: BP 117/80
[2020-01-03 12:50] VITALS: BP 116/78
== END 2020-01-03 15:11 | disposition home or self-care (01) | DRG 280 ==
LOC: ED 20:41 → EDIP 23:25 → 5SO 23:33
PROVIDERS: ADMIT Internal Medicine; ATTEND Family Medicine
DX: I21.4 Non-ST elevation (NSTEMI) myocardial infarction (principal); I50.23 Acute on chronic systolic (congestive) heart failure; I11.0 Hypertensive heart disease with heart failure; G89.4 Chronic pain syndrome; Z96.653 Presence of artificial knee joint, bilateral; Z91.14 Patient's other noncompliance with medication regimen; Z59.0 Homelessness; I27.20 Pulmonary hypertension, unspecified; B35.9 Dermatophytosis, unspecified; I25.10 Atherosclerotic heart disease of native coronary artery without angina pectoris; Z79.82 Long term (current) use of aspirin; Z79.899 Other long term (current) drug therapy
CPT/HCPCS: 36415; 71045; 80048; 80053; 80307; 83735; 83880; 84145; 84484; 85025; 93005; 96374; 96375; 99285; G0378; J1940; J2405; Q0162; J2270; Q0163; Q0177